=== PATIENT | female | born 1985 | race Caucasian/White ===

== ENCOUNTER 2017-01-20 18:25 | Emergency (ER) | payer SELFPAY ==
[2017-01-20 19:07] VITALS: BP 100/88
[2017-01-20] MEDS ORDERED: Ketorolac INJ* 60 MG/2 ML VIAL IM ONE (19:37)
[2017-01-20] MEDS ORDERED: HYDROcodone/ACETAMIN 5-325 MG* 1 TAB PO ONE (19:59)
--- NOTE | 2017-01-21 20:39 | UC ---
Tnoy Ramon Aidan, scribed for Kelly Perdue MD on 01/20/17 at 1952 . Back Pain HPI - HPI Summary HPI Summary: 31 y/o female presents to the ED with a complaint of acute, constant, moderate ( 7/10), lower lumbar pain that began at 1600 today while lifting a person at work. During the incident, she heard a pop in her lower back. The pain is aggravated by sitting and lying down. Pt denies any possibility of , because she is lesbian. She is allergic to penicillin and flexeril. ISTOP was consulted and she was last given 20 hydrocodone on 09/19/[address] Salinas. She states this was for abd pain. - History of Current Complaint Chief Complaint: UCBackPain Stated Complaint: LOWER BACK INJURY Time Seen by Provider: 01/20/17 19:32 Hx Obtained From: Patient Hx Last Menstrual Period: 01/17 ?: No Onset/Duration: Sudden Onset, Lasting Hours, Still Present Timing: Constant, Lasting Hours Severity Initially: Moderate Severity Currently: Moderate Pain Intensity: 7 Pain Scale Used: 0-10 Numeric Back Pain: Is Discrete @ - low lumbar Character: Dull, Aching Aggravating: Movement - sitting and lying down Alleviating: Nothing Associated Signs And Symptoms: Positive: Negative Related History: Occupational Injury - Risk Factors AAA Risk Factors: Smoking TAD Risk Factors: Smoking Cauda Equina Risk Factors: Negative Epidural Abscess Risk Factors: Negative - Allergies/Home Medications Allergies/Adverse Reactions: Allergies Allergy/AdvReac Type Severity Reaction Status Date / Time Adhesive Tape Allergy Severe Rash Verified 01/20/17 19:07 Cyclobenzaprine Allergy Severe Hives Verified 01/20/17 19:07 [From Flexeril] Penicillins Allergy Rash Verified 01/20/17 19:07 Metoclopramide [From Reglan] AdvReac Intermediate Anxiety Verified 01/20/17 19: 07 PMH/Surg Hx/FS Hx/Imm Hx Previously Healthy: No - MRSA GI/ History Of: Reports: Gastroesophageal Reflux Psychological History Of: Reports: Depression - Surgical History Surgical History: None Surgery Procedure, Year, and Place: dental - Family History Known Family History: Positive: Diabetes - Social History Occupation: Employed Full-time Lives: Alone Alcohol Use: Rare Substance Use Type: None Smoking Status (MU): Light Every Day Tobacco Smoker Type: Cigarettes Amount Used/How Often: 1/2 ppd Length of Time of Smoking/Using Tobacco: 16 years Have You Smoked in the Last Year: No Household Exposure Type: Cigarettes - Immunization History Most Recent Influenza Vaccination: no Most Recent Tetanus Shot: 3 years ago Review of Systems Constitutional: Negative Skin: Negative Eyes: Negative ENT: Negative Respiratory: Negative Cardiovascular: Negative Gastrointestinal: Negative Genitourinary: Negative Motor: Negative Neurovascular: Negative Musculoskeletal: Arthralgia - low lumbar pain, Myalgia - low lumbar paraspinous Neurological: Negative Psychological: Negative All Other Systems Reviewed And Are Negative: Yes Physical Exam Triage Information Reviewed: Yes Appearance: Well-Appearing, Well-Nourished, Pain Distress Vital Signs: Initial Vital Signs Temp 97.4 F 01/20/17 19:01 Pulse 90 01/20/17 19:01 Resp 18 01/20/17 19:01 BP 100/88 01/20/17 19:01 Pulse Ox 99 01/20/17 19:01 Vital Signs Reviewed: Yes Eyes: Positive: Conjunctiva Clear ENT: Positive: Normal ENT inspection Neck: Positive: Supple, Nontender, No Lymphadenopathy Respiratory: Positive: Lungs clear, Normal breath sounds, No respiratory distress Cardiovascular: Positive: RRR, Pulses Normal, Brisk Capillary Refill Abdomen Description: Positive: Nontender, Soft. Negative: CVA Tenderness (R), CVA Tenderness (L), Distended, Guarding Musculoskeletal: Positive: Strength Intact, ROM Intact, Other: - Patellar reflexes are 2+ and equal, Positive ankle reflexes 2+ bilat, spinal low lumbar tenderness, palpable spasm left lumbar paraspinous; able to walk on heels and toes. Neurological: Positive: Alert, Muscle Tone Normal Psychological Exam: Normal Skin Exam: Normal Back Pain Course/Dx - Course Course Of Treatment: ISTOP was consulted and she was last given 20 hydrocodone on 09/19/2016. Unable to give UA - Differential Dx/Diagnosis Differential Diagnosis/HQI/PQRI: Arthritis, Herniated Disc, Strain, Sprain Provider Diagnoses: acute lumbosacral strain Discharge - Discharge Plan Condition: Stable Disposition: HOME Prescriptions: HYDROcodone/ACETAMIN 5-325 MG* [[place] 5-325 TAB*] 1 tab PO Q4H PRN #18 tab MDD 6 PRN Reason: Pain Ibuprofen TAB* [Motrin TAB* 800 MG] 800 mg PO Q6H PRN #30 tab PRN Reason: Pain Tizanidine HCl 2 mg PO TID #12 cap Patient Education Materials: Low Back Strain (ED) Forms: *Work Release Referrals: [facility] [Outside] - As Soon As Possible (CALL TO GET ESTABLISHED WITH A PRIMARY CARE PROVIDER ) No Primary Care Phys,NOPCP [Primary Care Provider] - The documentation as recorded by the Tony silverio Aidan accurately reflects the service I personally performed and the decisions made by me, Kelly Perdue MD.
== END 2017-01-20 20:24 | disposition home or self-care (01) ==
LOC: UCEAST 18:25
DX: S39.012A Strain of muscle, fascia and tendon of lower back, initial encounter (principal); X50.0XXA Overexertion from strenuous movement or load, initial encounter; Y93.F2 Activity, caregiving, lifting; Y92.9 Unspecified place or not applicable; Y99.0 Civilian activity done for income or pay; Z88.0 Allergy status to penicillin; Z88.8 Allergy status to other drugs, medicaments and biological substances; F17.210 Nicotine dependence, cigarettes, uncomplicated
CPT/HCPCS: 96372; 99212; G0463; J1885

== ENCOUNTER 2019-05-14 15:43 | Emergency (ER) | payer OTHER ==
[2019-05-14 15:59] VITALS: BP 146/104
[2019-05-14] MEDS ORDERED: Ketorolac INJ* 30 MG/ML 1 ML VIAL IM ONE (16:10)
--- NOTE | 2019-05-14 16:25 | UC ---
Dental HPI - HPI Summary HPI Summary: 34-year-old female with a right lower toothache over the past few days and right earache. She has not had any cold symptoms recently. She has an appointment with her dentist on Friday however they told her if the pain became worse and come here to be rechecked. - History of Current Complaint Chief Complaint: UCDentalProblem Stated Complaint: DENTAL COMPLAINT, AND EAR ACHE Time Seen by Provider: 05/14/19 16:05 Hx Obtained From: Patient Hx Last Menstrual Period: 05/01/19 ?: No Onset/Duration: Gradual Onset Severity: Moderate Pain Intensity: 8 Aggravating Factor(s): Chewing Alleviating Factor(s): Nothing Related History: Other - The patient has a distal right lower molar which is only approximately 25% showing through the gumline. - Allergies/Home Medications Allergies/Adverse Reactions: Allergies Allergy/AdvReac Type Severity Reaction Status Date / Time Adhesive Tape Allergy Severe Rash Verified 05/14/19 15:58 cyclobenzaprine Allergy Hives Verified 05/14/19 15:58 [From Flexeril] metoclopramide [From Reglan] Allergy Anxiety Verified 05/14/19 15:58 Penicillins Allergy Rash Verified 05/14/19 15:58 Home Medications: Home Medications Acetaminophen [Mapap] 1,000 mg PO ONCE PRN 05/14/19 [History Confirmed 05/14/19] Fluoxetine HCl [Prozac] 40 mg PO DAILY 05/14/19 [History Confirmed 05/14/19] Tizanidine HCl 4 mg PO TID PRN 05/14/19 [History Confirmed 05/14/19] busPIRone TAB* [Buspar TAB*] 1 tab PO BID 05/14/19 [History Confirmed 05/14/19] PMH/Surg Hx/FS Hx/Imm Hx Previously Healthy: Yes - Surgical History Surgical History: Yes Surgery Procedure, Year, and Place: DENTAL EXTRACTIONS; LT ARM PIT CYST REMOVAL; - Family History Known Family History: Positive: Diabetes, Other - NONCONTIRBUTORY - Social History Alcohol Use: Occasionally Substance Use Type: None Smoking Status (MU): Light Every Day Tobacco Smoker Type: Cigarettes Amount Used/How Often: 1/2 ppd Length of Time of Smoking/Using Tobacco: 16 years Have You Smoked in the Last Year: No Household Exposure Type: Cigarettes - Immunization History Most Recent Influenza Vaccination: no Most Recent Tetanus Shot: 3 years ago Review of Systems All Other Systems Reviewed And Are Negative: Yes ENT: Positive: Dental Pain - Pain right lower distal jaw for a molar that is coming through the gum line., Ear Ache - Patient also has a right earache today however no recent cold symptoms. Is Patient Immunocompromised?: No Physical Exam Triage Information Reviewed: Yes Appearance: Well-Appearing, Well-Nourished, Pain Distress Vital Signs: Initial Vital Signs Temp 98.3 F 05/14/19 15:51 Pulse 101 05/14/19 15:51 Resp 18 05/14/19 15:51 BP 146/104 05/14/19 15:51 Pulse Ox 98 05/14/19 15:51 Vital Signs Reviewed: Yes Eyes: Positive: Conjunctiva Clear ENT: Positive: Hearing grossly normal, Pharynx normal, TMs normal, Dental tenderness - Patient has the right lower distal molar, not a wisdom tooth, protruding through the gumline approximately 25%. There is no abscess formation. There is no erythema although the gumline itself is swollen. It is tender on palpation. Dental: Positive: Percussion Tenderness @ - Described above Neck: Positive: Supple, Nontender, No Lymphadenopathy Respiratory: Positive: Lungs clear, Normal breath sounds, No respiratory distress, No accessory muscle use Cardiovascular: Positive: RRR, No Murmur, Pulses Normal, Brisk Capillary Refill Musculoskeletal Exam: Normal Neurological Exam: Normal Psychological Exam: Normal Skin Exam: Normal Dental Complaint Course/Dx - Course Course Of Treatment: Patient was given Toradol 30 mg IM here. I'm sending her home with a prescription for Motrin 600 mg every 8 hours and Percocet 10 tablets to take only for extreme pain. She is to follow-up with her dentist as previously scheduled for Friday. At this point time I don't believe there is no abscess formation however I am going to put her on clindamycin 300 mg 3 times a day for 10 days. - Differential Dx/Diagnosis Provider Diagnosis: Toothache Discharge - Sign-Out/Discharge Documenting (check all that apply): Patient Departure All imaging exams completed and their final reports reviewed: No Studies - Discharge Plan Condition: Fair Disposition: HOME Prescriptions: Clindamycin Cap(NF) [Clindamycin Cap 300 mg Cap(NF)] 300 mg PO TID 10 Days #30 cap Ibuprofen TAB* [Motrin TAB* 600 MG] 600 mg PO Q8H PRN #20 tab PRN Reason: Pain Oxycodone HCl/Acetaminophen [Percocet] 1 tab PO Q4H PRN #10 tab MDD 6 PRN Reason: Pain Patient Education Materials: Toothache (ED) Referrals: No Primary Care Phys,NOPCP [Primary Care Provider] - [facility] [Outside] Additional Instructions: Take the Percocet for severe pain. If you take regular Tylenol then make sure it is at least 4 hours interval between taking Percocet. You may take Motrin 600 mg by mouth every 8 hours for pain. Definite follow-up with your dentist on Friday as scheduled. - Billing Disposition and Condition Condition: FAIR Disposition: Home
== END 2019-05-14 16:32 | disposition home or self-care (01) ==
LOC: UCEAST 15:43
DX: K08.89 Other specified disorders of teeth and supporting structures (principal); F17.210 Nicotine dependence, cigarettes, uncomplicated; Z88.0 Allergy status to penicillin
CPT/HCPCS: 96372; 99212; G0463; J1885